=== PATIENT | female | born 1980 | race Caucasian/White ===

== ENCOUNTER 2021-07-30 13:48 | Emergency (ER) | payer MEDICAID, OTHER ==
[~2021-07-30] VITALS: Ht 177.8 cm; Wt 64.0 kg
[2021-07-30 13:53] VITALS: BP 119/77
== END 2021-07-30 15:46 | disposition home or self-care (01) ==
LOC: ER 14:01
DX: F10.129 Alcohol abuse with intoxication, unspecified (principal); Y90.9 Presence of alcohol in blood, level not specified
CPT/HCPCS: 99283